=== PATIENT | male | born 2000 | race Asian ===

== ENCOUNTER 2025-08-25 05:14 | Emergency (ER) | payer MEDICAID ==
[~2025-08-25] VITALS: Ht 172.7 cm; Wt 74.8 kg
[2025-08-25] MEDS ORDERED: PROCHLORPERAZINE EDISYLATE 10 MG/2 ML VIAL ONE (06:17)
[2025-08-25] MEDS ORDERED: KETOROLAC TROMETHAMINE INJ 30 MG/ML VIAL ONE (06:17)
[2025-08-25] MEDS ORDERED: dexaMETHasone SOD PHOSPHATE 1 ML ONE (06:17)
[2025-08-25] MEDS: dexaMETHasone SOD PHOSPHATE 10 MG/ML VIAL IV ONE (06:28)
[2025-08-25] MEDS: IV NS 0.9% 1,000 ML BAG IV ONE (06:28)
[2025-08-25] MEDS: PROCHLORPERAZINE EDISYLATE 10 MG/2 ML VIAL IVP ONE (06:29)
[2025-08-25] MEDS: KETOROLAC TROMETHAMINE INJ 30 MG/ML VIAL IV ONE (06:29)
[2025-08-25] MEDS ORDERED: PROC10TA29 PO (07:35)
[2025-08-25] MEDS ORDERED: SUMA100T PO (07:35)
[2025-08-25] MEDS ORDERED: KETO10TA2 PO (07:35)
[2025-08-25] MEDS ORDERED: CARB15DR12 EACH EAR (07:39)
[2025-08-25 07:59] VITALS: BP 112/77; TEMP 98.4; O2SAT 99
== END 2025-08-25 07:40 | disposition home or self-care (01) ==
LOC: ER 05:21
DX: G43.909 Migraine, unspecified, not intractable, without status migrainosus (principal); R11.2 Nausea with vomiting, unspecified; Z60.2 Problems related to living alone
CPT/HCPCS: 99285; 96374; 70450; 96375; 96361; J1885; J0780; J1100; J7030